=== PATIENT | female | born 1955 | race Caucasian/White ===

== ENCOUNTER 2018-12-03 00:18 | Emergency (ER) | payer BC ==
[~2018-12-03] VITALS: Ht 152.4 cm; Wt 68.9 kg
[2018-12-03 00:29] VITALS: Ht 152.4 cm; Wt 68.9 kg
[2018-12-03 01:17] VITALS: BP 131/86
== END 2018-12-03 01:17 | disposition home or self-care (01) ==
LOC: ED 00:18
DX: R45.851 Suicidal ideations (principal); F32.9 Major depressive disorder, single episode, unspecified; F41.9 Anxiety disorder, unspecified; J45.909 Unspecified asthma, uncomplicated; Z88.2 Allergy status to sulfonamides; Z88.6 Allergy status to analgesic agent; Z88.5 Allergy status to narcotic agent; Z88.1 Allergy status to other antibiotic agents; Z90.12 Acquired absence of left breast and nipple